=== PATIENT | female | born 1945 | race Caucasian/White ===

== ENCOUNTER 2019-07-19 16:18 | Outpatient (CLI) | payer MEDICARE, OTHER ==
--- NOTE | 2019-07-20 13:20 | XRAY Report ---
Reason: BACK PAIN Procedure Date: 07/19/2019 Accession Number: [id number] / [id number] Procedure: XRN - Lumbar Spine Complete CPT Code: Final Report FULL RESULT: EXAM: LUMBOSACRAL SPINE RADIOGRAPHY EXAM DATE: 07/19/2019 04:41 PM. CLINICAL HISTORY: BACK PAIN. Patient stood up and felt the lower back snap 3 days ago. COMPARISONS: None. TECHNIQUE: 5 views. FINDINGS: Alignment: 7 mm grade 1 anterolisthesis L4 on L5. Bones: Five sss-lfy-bjkmcyx lumbar vertebral bodies are present. No fractures or bone lesions. Disks: Mild disk height loss at L2-L3, L3-L4, L4-L5 with minimal anterior endplate osteophyte formation. Facets: Mild bilateral facet narrowing at L4-L5 and L5-S1. Sacroiliac Joints: Unremarkable. Soft Tissues: Normal. The visualized bowel gas pattern is normal. IMPRESSION: 1. Grade 1 spondylotic anterolisthesis of L4 on L5. 2. Mild degenerative disk disease L2-L3, L3-L4, L4-L5. 3. Mild bilateral facet osteoarthritis L4-L5 and L5-S1. RADIA
== END 2019-07-19 16:19 | disposition home or self-care (01) ==
LOC: DI.N 16:18
PROVIDERS: ATTEND Family Medicine
DX: M51.36 Other intervertebral disc degeneration, lumbar region (principal); M47.816 Spondylosis without myelopathy or radiculopathy, lumbar region; M47.817 Spondylosis without myelopathy or radiculopathy, lumbosacral region; M43.16 Spondylolisthesis, lumbar region
CPT/HCPCS: 72110

== ENCOUNTER 2019-08-03 17:49 | Outpatient (CLI) | payer OTHER ==
--- NOTE | 2019-08-03 19:27 | XRAY Report ---
Reason: ABDONINAL DISCOMFORT Procedure Date: 08/03/2019 Accession Number: [id number] / [id number] Procedure: XR - Abdomen Acute CPT Code: Final Report FULL RESULT: EXAM: ABDOMINAL SERIES AND PA CHEST EXAM DATE: 08/03/2019 05:59 PM. CLINICAL HISTORY: ABDOMINAL DISCOMFORT. COMPARISON: None. TECHNIQUE: 4 views abdomen and 1 view chest. FINDINGS: CHEST: Lungs/Pleura: No focal opacities. No effusion or pneumothorax. Mediastinum: Within exam limitations, cardiomediastinal contour is normal. ABDOMEN: Bowel Gas Pattern: Large gas-filled loop of bowel in the left upper quadrant on the supine view with somewhat of a coffee hebert sign appearance concerning for sigmoid volvulus. No evidence of small bowel obstruction. Free Air: None. Other: None. IMPRESSION: 1. Large gas-filled loop of bowel in the left upper quadrant on the supine view with somewhat of a coffee hebert sign appearance concerning for sigmoid volvulus. Recommend further evaluation with CT scan of the abdomen and pelvis. 2. No evidence of small bowel obstruction. 3. No acute cardiopulmonary process identified radiographically. RADIA
== END 2019-08-03 17:50 | disposition home or self-care (01) ==
LOC: DI 17:49
PROVIDERS: ATTEND Family Medicine
DX: R10.9 Unspecified abdominal pain (principal)
CPT/HCPCS: 74022

== ENCOUNTER 2019-08-05 11:53 | Outpatient (CLI) | payer OTHER ==
[2019-08-05] MEDS ORDERED: IOVERSOL 320 50 ML VIAL ONE (11:54)
[2019-08-05] MEDS ORDERED: IOVERSOL 320 100 ML VIAL IVP ONE ×2 (11:54→13:25)
[2019-08-05 12:42] LABS: CALCIUM 9.6 mg/dL (8.5-10.3); CREATININE 0.8 mg/dL (0.4-1.0)
[2019-08-05] MEDS ORDERED: IOVERSOL 320 50 ML VIAL PO ONE (13:25)
--- NOTE | 2019-08-07 14:38 | CT Report ---
Reason: SIGMOID VOLVULUS Procedure Date: 08/05/2019 Accession Number: [id number] / [id number] Procedure: CT - Abdomen/Pelvis W CPT Code: Final Report FULL RESULT: EXAM: CT ABDOMEN AND PELVIS EXAM DATE: 08/05/2019 01:16 PM. CLINICAL HISTORY: History of sigmoid volvulus with surgical repair approximately 1 year ago. Some bladder leakage and swelling in the right and left pelvic regions. COMPARISONS: None. TECHNIQUE: Routine helical CT imaging was performed through the abdomen and pelvis. IV contrast: Optiray 320 90 mL. Enteric contrast: Yes. Reconstructions: Coronal and sagittal. In accordance with CT protocol optimization, one or more of the following dose reduction techniques were utilized for this exam: automated exposure control, adjustment of mA and/or KV based on patient size, or use of iterative reconstructive technique. FINDINGS: Lung Bases: There is a 6 mm nodule at the peripheral left lung base, see image 2 series 3, not completely characterized. Liver: Subcentimeter hepatic hypodensities are too small to characterize. Gallbladder/Bile Ducts: Unremarkable. Spleen: Normal. Pancreas: Normal. Adrenal Glands: Normal. Kidneys: Normal. No masses or hydronephrosis. Peritoneal Cavity/Bowel: There is no small bowel obstruction. Small bowel loops are seen laterally to the sigmoid colon. The rectosigmoid contains some bowel content, however most of the sigmoid colon is collapsed and medial to a significant amount of small bowel loops, no closed loop configuration is detected. There are no air-fluid levels/focal transition points. No free fluid or free air. No lymphadenopathy by size criteria. Pelvic Organs: No hernia is detected. The patient is status post hysterectomy. Vasculature: There is atherosclerotic disease without abdominal aortic aneurysm. Bones: Grade 1 anterolisthesis of L4 on L5. No aggressive osseous lesions. Other: None. IMPRESSION: Small bowel laterally to the collapsed sigmoid colon, consistent with previous surgical intervention for sigmoid volvulus. No pelvic hernia. RADIA
== END 2019-08-05 11:54 | disposition home or self-care (01) ==
LOC: DI 11:53
PROVIDERS: ATTEND Family Medicine
DX: K56.2 Volvulus (principal); R10.9 Unspecified abdominal pain
CPT/HCPCS: 36415; 74177; 80048; Q9967

== ENCOUNTER 2020-08-14 10:31 | Outpatient (CLI) | payer MEDICARE ==
--- NOTE | 2020-08-14 15:49 | DEXA Report ---
PROCEDURE: Dexa Spine and/or Hip INDICATIONS: SCREENING FOR OSTEOPOROSIS TECHNIQUE: Dual energy x-ray absorptiometry (DXA) was performed on a [employer] System. Regions measur ed are the AP Spine, femoral neck, and if needed forearm. COMPARISON: None. FINDINGS: Lumbar Spine: Bone Mineral Density 1.173 g/cm/cm,T score -0.1, normal bone density Left Hip: Bone Mineral Density 0.907 g/cm/cm,T score -0.8, normal bone density Left Femoral Neck: Bone Mineral Density 0.901 g/cm/cm, T score -1.0, borderline osteopenia (T score greater or equal to -1.0: NORMAL) (T score from -1.1 to -2.4: OSTEOPENIA) (T score less than or equal to -2.5 to: OSTEOPOROSIS) Impression: Borderline osteopenia within the left femoral neck. Patients with diagnosis of osteoporosis or osteopenia should have regular bone mineral density assess ment. For those eligible for Medicare, routine testing is allowed once every 2 years. Testing frequ ency can be increased for patients who have rapidly progressing disease or for those who are receivin g medical therapy to restore bone mass. Reviewed by: Blanca Craft MD on 08/14/2020 3:48 PM PST Approved by: Blanca Craft MD on 08/14/2020 3:48 PM PST Station ID: [id number]
== END 2020-08-14 10:32 | disposition home or self-care (01) ==
LOC: DI 10:31
PROVIDERS: ATTEND Internal Medicine
DX: Z13.820 Encounter for screening for osteoporosis (principal); M85.88 Other specified disorders of bone density and structure, other site

== ENCOUNTER 2020-08-21 11:05 | Outpatient (CLI) | payer MEDICARE, OTHER ==
--- NOTE | 2020-08-22 11:45 | Mammography Report ---
BILATERAL DIGITAL SCREENING MAMMOGRAM 3D/2D: 08/21/2020 CLINICAL: Routine screening. Personal history of right breast cancer. Comparison is made to exams dated: 11/21/2018 mammogram, 02/27/2015 mammogram, and 02/18/2015 mammogram - Diagnostic There are benign post operative findings in the right breast. There also are biopsy clips in the lef t breast. No significant masses, calcifications, or other findings are seen in either breast. There has been no significant interval change. IMPRESSION: BENIGN There is no mammographic evidence of malignancy. A 1 year screening mammogram is recommended. This exam was interpreted at Station ID: [id number]. NOTE: For mammograms, a report in lay terms will be sent to the patient. Approximately 15% of breast malignancies will not be visualized mammographically. In the management of a palpable breast mass, a negative mammogram must not discourage biopsy of a clinically suspicious lesion. Electronically Signed By: Yanci pradhan/marissa:08/21/2020 18:21:43 ACR BI-RADS Category 2: Benign Finding(s) 3342F PARENCHYMAL PATTERN: (D) - The breast(s) demonstrate(s) heterogeneously dense fibroglandular parenchy ma. BI-RADS CATEGORY: (2) - 2 RECOMMENDATION: (ANNUAL) - Recommend routine annual screening mammography. [id number] 1 year screening LATERALITY: (B)
== END 2020-08-21 11:06 | disposition home or self-care (01) ==
LOC: DI.N 11:05
PROVIDERS: ATTEND Internal Medicine
DX: Z12.39 Encounter for other screening for malignant neoplasm of breast (principal); Z08 Encounter for follow-up examination after completed treatment for malignant neoplasm; Z85.3 Personal history of malignant neoplasm of breast
CPT/HCPCS: 77067

== ENCOUNTER 2020-12-09 18:53 | Outpatient (CLI) | payer MEDICARE, OTHER | END 2020-12-09 18:54 | disposition critical access hospital (66) | LOC: EMS 18:53 | DX: R07.89 Other chest pain (principal) | CPT/HCPCS: A0425; A0429 ==

== ENCOUNTER 2020-12-09 19:13 | Emergency (ER) | payer MEDICARE, OTHER ==
[2020-12-09 19:27] LABS: BASOPHILS % (AUTO) 0.9 %; EOSINOPHILS # (AUTO) 0.1 10^3/uL (0.0-0.7); EOSINOPHILS % (AUTO) 1.8 %; HCT - HEMATOCRIT 37.5 % (37.0-47.0); HGB - HEMOGLOBIN 12.7 g/dL (12.0-16.0); LYMPHOCYTES # (AUTO) 1.7 10^3/uL (1.5-3.5); LYMPHOCYTES % (AUTO) 37.1 %; MEAN CORPUSCULAR HEMOGLOBIN 32.3 pg (27.0-31.0); MEAN CORPUSCULAR HGB CONC 33.9 g/dL (32.0-36.0); MEAN CORPUSCULAR VOLUME 95.4 fL (81.0-99.0); MEAN PLATELET VOLUME 8.9 fL (7.9-10.8); MONOCYTES # (AUTO) 0.4 10^3/uL (0.0-1.0); MONOCYTES % (AUTO) 9.8 %; NEUTROPHILS # (AUTO) 2.2 10^3/uL (1.5-6.6); NEUTROPHILS % (AUTO) 50.2 %; PLT - PLATELET COUNT 234 10^3/uL (130-450); RED BLOOD COUNT 3.93 10^6/uL (4.20-5.40); RED CELL DISTRIBUTION WIDTH 13.2 % (12.0-15.0); WHITE BLOOD COUNT 4.5 x10^3/uL (4.8-10.8)
--- OUTSIDE RECORDS SUMMARY | 2020-12-09 19:39 | EXTERNAL MEDICAL SUMMARY RPT | Continuity of Care Document ---
:1945 Demographics Phone Unavailable Preferred Language Unknown Marital Status Unknown Denominational Affiliation Unknown Race Unknown Ethnic Group Unknown Author Organization [facility] Address [address] [id number] Phone Social History date description facility [id number]
[2020-12-09 19:42] LABS: ALBUMIN 4.3 g/dL (3.2-5.5); ALBUMIN/GLOBULIN RATIO 1.5 (1.0-2.2); BILIRUBIN,TOTAL 0.9 mg/dL (0.2-1.0); CREATININE 0.8 mg/dL (0.4-1.0); POTASSIUM 3.3 mmol/L (3.5-5.0); TOTAL PROTEIN 7.2 g/dL (6.7-8.2)
--- NOTE | 2020-12-09 19:46 | XRAY Report ---
PROCEDURE: Chest 1 View X-Ray INDICATIONS: Chest Pain TECHNIQUE: One view of the chest was acquired. COMPARISON: None currently available for review. FINDINGS: Surgical changes and devices: Surgical clips overlie the right breast. Within the lung parenchyma no surgical clips are suspected.. Lungs and pleura: No pleural effusions or pneumothorax. Lungs are clear. Mediastinum: Mediastinal contours appear normal. Heart size is normal. Bones and chest wall: No suspicious bony lesions. Overlying soft tissues appear unremarkable. IMPRESSION: Prior right breast surgical procedure. No sign of pneumonia or pulmonary mass, no evidence of osseous metastatic disease. Source of current chest pain is not seen. Reviewed by: North Yarbrough MD on 12/09/2020 7:45 PM PDT Approved by: North Yarbrough MD on 12/09/2020 7:45 PM PDT Station ID: [id number]
--- NOTE | 2020-12-09 20:07 | ED Physician Documentation ---
PD HPI CHEST PAIN - Stated complaint Stated Complaint: CP - Chief complaint Chief Complaint: Cardiac - History obtained from History obtained from: Patient - Additional information Additional information: This is a ciro 75-year-old woman with no history of coronary disease or risk factors for same other than age. She was a remote sporadic smoker, but quit 40 years ago. Initially says for the last 3 days she has had chest pain but relates is actually probably been longer, more like a week but worse over the last 3 days, waxing and waning but never completely gone. It is a sharp line pain across the left breast and to the sternum. Its not associated with fatigue, shortness of breath, nausea, sweats. There is no exertional component to it. Review of Systems Constitutional: denies: Fever, Chills Nose: denies: Rhinorrhea / runny nose, Congestion Throat: denies: Sore throat Cardiac: reports: Chest pain / pressure. 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 boewl obx - Past Surgical History Past Surgical History: Yes General: Bowel surgery Ortho: Other /WILL CALL ORDER CLERK: section, Hysterectomy - Present Medications Home Medications: Ambulatory Orders Medication Instructions Recorded Confirmed No Known Home Medications 12/09/20 12/09/20 - Allergies Allergies/Adverse Reactions: Allergies Allergy/AdvReac Type Severity Reaction Status Date / Time cortisone Allergy Severe Anaphylaxis Verified 12/09/20 19:19 - Social History Does the pt smoke?: No Smoking Status: Never smoker Does the pt drink ETOH?: Yes ETOH Use: Wine Does the pt have substance abuse?: No - Immunizations Immunizations are current?: Yes - POLST Patient has POLST: No PD ED PE NORMAL - Vitals Vital signs reviewed: Yes - General General: Alert and oriented X 3, No acute distress - HEENT HEENT: PERRL, EOMI - Neck Neck: Supple, no meningeal sign, No bony TTP - Cardiac Cardiac: RRR, No murmur - Respiratory Respiratory: No respiratory distress, Clear bilaterally - Abdomen Abdomen: Non tender - Back Back: No CVA TTP, No spinal TTP - Derm Derm: Normal color, Warm and dry - Extremities Extremities: No edema, No calf tenderness / cord - Neuro Neuro: Alert and oriented X 3, Normal speech Results - Vitals Vitals: Vital Signs - 24 hr 12/09/20 19:19 Temperature 37.2 C Heart Rate 95 Respiratory 17 Rate Blood Pressure 149/94 H O2 Saturation 97 Oxygen O2 Source Room air - EKG (time done) 1916 Rate: Rate (enter#) (85) Rhythm: NSR [place]: LAD Intervals: Normal AL QRS: Normal Ischemia: Normal ST segments - Labs Labs: Laboratory Tests 12/09/20 12/09/20 12/09/20 19:21 19:21 19:21 WBC 4.5 L RBC 3.93 L Hgb 12.7 Hct 37.5 MCV 95.4 MCH 32.3 H MCHC 33.9 RDW 13.2 Plt Count 234 MPV 8.9 Neut # (Auto) 2.2 Lymph # (Auto) 1.7 [place] # (Auto) 0.4 Eos # (Auto) 0.1 Baso # (Auto) 0.0 Absolute Nucleated RBC 0.00 Nucleated RBC % 0.0 Sodium 138 Potassium 3.3 L Chloride 102 Carbon Dioxide 27 Anion Gap 9.0 BUN 19 Creatinine 0.8 Estimated GFR (MDRD) 70 L Glucose 100 Calcium 10.0 Total Bilirubin 0.9 AST 16 ALT 17 Alkaline Phosphatase 69 Troponin I High Sens 4.3 Total Protein 7.2 Albumin 4.3 Globulin 2.9 Albumin/Globulin Ratio 1.5 Lipase 32 PD MEDICAL DECISION MAKING - ED course ED course: This is a 75-year-old woman with atypical chest pain of 3 days duration. Given the timing a single troponin should be predictive, that said because of her age and blood pressure I recommended admission to observation for serial troponins and stress testing which she declined after discussion of the risks. She prefers an outpatient follow-up and stress. Departure - Departure Disposition: 01 Home, Self Care Clinical Impression: Chest pain Qualifiers: Chest pain type: unspecified Qualified Code(s): R07.9 - Chest pain, unspecified Condition: Good Record reviewed to determine appropriate education?: Yes Instructions: ED Chest Pain Atypical Unkn Cause Comments: Return if worsening or if the pain changes. Follow-up with your doctor, call tomorrow. Consider follow-up stress testing. Until notified otherwise you should take a baby aspirin a day.
[2020-12-09 20:17] VITALS: BP 161/90
== END 2020-12-09 20:15 | disposition home or self-care (01) ==
LOC: EDUNIT# → ED 19:13
DX: R07.9 Chest pain, unspecified (principal); Z87.891 Personal history of nicotine dependence
CPT/HCPCS: 36415; 80053; 83690; 84484; 85025; 93005; 99283; 99284

== ENCOUNTER 2021-05-02 08:00 | Outpatient (CLI) | payer MEDICARE, OTHER | END 2021-05-02 23:59 | disposition home or self-care (01) | LOC: LAB.WCP 08:00 | PROVIDERS: ATTEND Internal Medicine | DX: Z01.84 Encounter for antibody response examination (principal); J06.9 Acute upper respiratory infection, unspecified | CPT/HCPCS: 86769 ==

== ENCOUNTER 2021-07-16 16:04 | Outpatient (CLI) | payer MEDICARE, OTHER ==
--- NOTE | 2021-07-16 17:08 | XRAY Report ---
PROCEDURE: Knee 4 View BILAT INDICATIONS: OSTEOARTHRITIS, BILATERAL KNEES TECHNIQUE: 3 views of the left and right knee(s) were acquired. COMPARISON: None. FINDINGS: No acute fracture. On the right, scattered degenerative spurring and sclerosis.Severe narrowing of the medial joint spac es. Chondrocalcinosis noted. No joint effusion. There is also severe narrowing of the patellar femora l joint space. On the left, scattered degenerative spurring and sclerosis. Severe patellofemoral joint space narrowi ng. No joint effusion. Chondrocalcinosis is present in the lateral compartment. IMPRESSION: Severe bilateral knee joint degeneration as above. Chondrocalcinosis. Reviewed by: Florian Falcon MD on 07/16/2021 5:06 PM PST Approved by: Florian Falcon MD on 07/16/2021 5:06 PM PST Station ID: [id number]
== END 2021-07-16 16:05 | disposition home or self-care (01) ==
LOC: DI.N 16:04
PROVIDERS: ATTEND Internal Medicine
DX: M17.0 Bilateral primary osteoarthritis of knee (principal); M11.262 Other chondrocalcinosis, left knee; M11.261 Other chondrocalcinosis, right knee

== ENCOUNTER 2021-07-19 09:47 | Outpatient (CLI) | payer MEDICARE, OTHER ==
[2021-07-19 13:40] LABS: BASOPHILS # (AUTO) 0.1 10^3/uL (0.0-0.1); BASOPHILS % (AUTO) 1.4 %; EOSINOPHILS # (AUTO) 0.1 10^3/uL (0.0-0.7); EOSINOPHILS % (AUTO) 3.4 %; HCT - HEMATOCRIT 37.2 % (37.0-47.0); HGB - HEMOGLOBIN 11.9 g/dL (12.0-16.0); LYMPHOCYTES # (AUTO) 1.3 10^3/uL (1.5-3.5); LYMPHOCYTES % (AUTO) 32.1 %; MEAN CORPUSCULAR HEMOGLOBIN 32.4 pg (27.0-31.0); MEAN CORPUSCULAR VOLUME 101.4 fL (81.0-99.0); MEAN PLATELET VOLUME 10.2 fL (7.9-10.8); MONOCYTES # (AUTO) 0.5 10^3/uL (0.0-1.0); MONOCYTES % (AUTO) 11.1 %; NEUTROPHILS # (AUTO) 2.1 10^3/uL (1.5-6.6); NEUTROPHILS % (AUTO) 51.8 %; PLT - PLATELET COUNT 267 10^3/uL (130-450); RED BLOOD COUNT 3.67 10^6/uL (4.20-5.40); RED CELL DISTRIBUTION WIDTH 13.2 % (12.0-15.0); WHITE BLOOD COUNT 4.1 x10^3/uL (4.8-10.8)
[2021-07-19 14:22] LABS: ALBUMIN 4.6 g/dL (3.2-5.5); ALBUMIN/GLOBULIN RATIO 1.4 (1.0-2.2); ALKALINE PHOSPHATASE 64 IU/L (42-121); ALT ALANINE AMINOTRANSFERASE 21 IU/L (10-60); AST ASPARTATE AMINOTRANSFERASE 20 IU/L (10-42); BILIRUBIN,TOTAL 1.4 mg/dL (0.2-1.0); BUN - BLOOD UREA NITROGEN 17 mg/dL (6-20); CALCIUM 10.4 mg/dL (8.5-10.3); CARBON DIOXIDE - CO2 30 mmol/L (21-32); CHLORIDE 101 mmol/L (101-111); CHOL/HDL RATIO 2.6 (<4.4); CHOLESTEROL 268 mg/dL; CREATININE 1.1 mg/dL (0.4-1.0); GFR - MDRD 48 (>89); GLUCOSE 93 mg/dL (70-100); HDL CHOLESTEROL 104 mg/dL; LDL CHOLESTEROL,CALCULATED 133 mg/dL; LDL/HDL RATIO 1.3 (<4.4); POTASSIUM 3.6 mmol/L (3.5-5.0); SODIUM 142 mmol/L (135-145); TOTAL PROTEIN 7.8 g/dL (6.7-8.2); TRIGLYCERIDES 157 mg/dL; VLDL CHOLESTEROL 31 mg/dL
[2021-07-19 14:32] LABS: THYROID STIMULATING HORMONE 5.95 uIU/mL (0.34-5.60)
[2021-07-19 15:10] LABS: FREE T4 (FREE THYROXINE) 0.77 ng/dL (0.58-1.64)
== END 2021-07-19 09:48 | disposition home or self-care (01) ==
LOC: LAB.N 09:47
PROVIDERS: ATTEND Internal Medicine
DX: I10 Essential (primary) hypertension (principal); G62.9 Polyneuropathy, unspecified; D47.2 Monoclonal gammopathy
CPT/HCPCS: 36415; 80053; 80061; 81599; 83721; 84155; 84165; 84439; 84443; 85025; 86334

== ENCOUNTER 2021-08-04 08:00 | Outpatient (CLI) | payer MEDICARE, OTHER ==
[2021-08-04 19:50] LABS: FECAL OCCULT BLOOD (FIT) NEGATIVE (NEGATIVE)
[2021-08-04 22:29] LABS: H. PYLORIS ANTIGEN STL NEGATIVE (Negative)
== END 2021-08-04 23:59 ==
LOC: LAB.WCP 08:00
PROVIDERS: ATTEND Internal Medicine
DX: K52.9 Noninfective gastroenteritis and colitis, unspecified (principal)
CPT/HCPCS: 81599; 82274; 83993; 87045; 87329; 87338; 87427; 87449; 87493

== ENCOUNTER 2021-11-06 12:38 | Outpatient (CLI) | payer MEDICARE, OTHER ==
[2021-11-08 15:41] LABS: ABNORMAL PROTEIN BAND 1 0.8 g/dL (NONE DETECTED); ALBUMIN 4.8 g/dL (3.8-4.8); ALPHA 1 GLOBULIN 0.3 g/dL (0.2-0.3); ALPHA 2 GLOBULIN 0.8 g/dL (0.5-0.9); BETA 1 GLOBULIN 0.5 g/dL (0.4-0.6); BETA 2 GLOBULIN 0.3 g/dL (0.2-0.5); GAMMA GLOBULIN 1.3 g/dL (0.8-1.7)
== END 2021-11-06 12:39 | disposition home or self-care (01) ==
LOC: LAB.N 12:38
DX: D47.2 Monoclonal gammopathy (principal)
CPT/HCPCS: 36415; 81599; 82570; 84155; 84156; 84165; 84166

== ENCOUNTER 2021-11-24 13:10 | Outpatient (CLI) | payer MEDICARE, OTHER | END 2021-11-24 13:11 | disposition home or self-care (01) | LOC: LAB.N 13:10 | PROVIDERS: ATTEND Internal Medicine | DX: E83.52 Hypercalcemia (principal); D47.2 Monoclonal gammopathy | CPT/HCPCS: 36415; 81599; 83970; 84155; 84165; 86334 ==

== ENCOUNTER 2021-11-27 14:58 | Outpatient (CLI) | payer MEDICARE, OTHER | END 2021-11-27 14:59 | disposition home or self-care (01) | LOC: LAB.N 14:58 | DX: D47.2 Monoclonal gammopathy (principal) | CPT/HCPCS: 81599; 86334 ==

== ENCOUNTER 2022-08-17 11:23 | Outpatient (CLI) | payer MEDICARE, OTHER ==
[2022-08-17 17:45] LABS: BASOPHILS # (AUTO) 0.1 10^3/uL (0.0-0.1); BASOPHILS % (AUTO) 1.1 %; EOSINOPHILS # (AUTO) 0.1 10^3/uL (0.0-0.7); EOSINOPHILS % (AUTO) 1.1 %; HCT - HEMATOCRIT 39.4 % (37.0-47.0); HGB - HEMOGLOBIN 12.3 g/dL (12.0-16.0); LYMPHOCYTES # (AUTO) 1.4 10^3/uL (1.5-3.5); LYMPHOCYTES % (AUTO) 31.2 %; MEAN CORPUSCULAR HGB CONC 31.2 g/dL (32.0-36.0); MEAN CORPUSCULAR VOLUME 92.9 fL (81.0-99.0); MEAN PLATELET VOLUME 10.2 fL (7.9-10.8); MONOCYTES # (AUTO) 0.4 10^3/uL (0.0-1.0); MONOCYTES % (AUTO) 8.6 %; NEUTROPHILS # (AUTO) 2.6 10^3/uL (1.5-6.6); NEUTROPHILS % (AUTO) 57.8 %; PLT - PLATELET COUNT 274 10^3/uL (130-450); RED BLOOD COUNT 4.24 10^6/uL (4.20-5.40); RED CELL DISTRIBUTION WIDTH 17.5 % (12.0-15.0); WHITE BLOOD COUNT 4.5 x10^3/uL (4.8-10.8)
[2022-08-17 18:09] LABS: ALBUMIN 4.2 g/dL (3.2-5.5); ALBUMIN/GLOBULIN RATIO 1.2 (1.0-2.2); ALKALINE PHOSPHATASE 75 IU/L (42-121); ALT ALANINE AMINOTRANSFERASE 18 IU/L (10-60); AST ASPARTATE AMINOTRANSFERASE 20 IU/L (10-42); BILIRUBIN,TOTAL 0.8 mg/dL (0.2-1.0); BUN - BLOOD UREA NITROGEN 16 mg/dL (6-20); CALCIUM 9.2 mg/dL (8.5-10.3); CARBON DIOXIDE - CO2 27 mmol/L (21-32); CHLORIDE 99 mmol/L (101-111); CHOL/HDL RATIO 2.1 (<4.4); CHOLESTEROL 266 mg/dL; CREATININE 0.8 mg/dL (0.4-1.0); GFR - MDRD 70 (>89); GLUCOSE 95 mg/dL (70-100); HDL CHOLESTEROL 129 mg/dL; LDL CHOLESTEROL,CALCULATED 125 mg/dL; SODIUM 135 mmol/L (135-145); TOTAL PROTEIN 7.7 g/dL (6.7-8.2); TRIGLYCERIDES 61 mg/dL; VLDL CHOLESTEROL 12 mg/dL
[2022-08-17 18:19] LABS: THYROID STIMULATING HORMONE 0.86 uIU/mL (0.34-5.60)
[2022-08-19 16:08] LABS: A/G RATIO 1.1 (0.7-1.7); ALBUMIN 3.7 g/dL (2.9-4.4); ALPHA-1-GLOBULIN 0.3 g/dL (0.0-0.4); ALPHA-2-GLOBULIN 0.8 g/dL (0.4-1.0); GAMMA GLOBULIN 1.4 g/dL (0.4-1.8); GLOBULIN TOTAL 3.4 g/dL (2.2-3.9); IMMUNOGLOBULIN A 116 mg/dL (64-422); IMMUNOGLOBULIN G 1377 mg/dL (586-1602); IMMUNOGLOBULIN M 80 mg/dL (26-217); M-SPIKE 0.7 g/dL (Not Observed); PROTEIN TOTAL 7.1 g/dL (6.0-8.5)
== END 2022-08-17 11:24 | disposition home or self-care (01) ==
LOC: LAB.N 11:23
PROVIDERS: ATTEND Internal Medicine
DX: D47.2 Monoclonal gammopathy (principal); K22.70 Barrett's esophagus without dysplasia; Z13.220 Encounter for screening for lipoid disorders; Z85.3 Personal history of malignant neoplasm of breast; K58.0 Irritable bowel syndrome with diarrhea; E03.9 Hypothyroidism, unspecified
CPT/HCPCS: 36415; 80053; 80061; 81599; 82784; 83721; 84155; 84165; 84443; 85025; 86334; 86677

== ENCOUNTER 2022-08-24 08:00 | Outpatient (CLI) | payer MEDICARE, OTHER ==
[2022-08-24 18:03] LABS: H. PYLORIS ANTIGEN STL NEGATIVE (Negative)
== END 2022-08-24 23:59 | disposition home or self-care (01) ==
LOC: LAB.N 08:00
PROVIDERS: ATTEND Internal Medicine
DX: K58.0 Irritable bowel syndrome with diarrhea (principal)
CPT/HCPCS: 83993; 87338

== ENCOUNTER 2022-12-04 19:16 | Outpatient (CLI) | payer MEDICARE, OTHER ==
--- NOTE | 2022-12-05 00:20 | XRAY Report ---
PROCEDURE: Knee 3 View BILAT INDICATIONS: BILATERAL PRIMARY OSTEOARTHRITIS OF KNEE TECHNIQUE: 3 views of each knee were acquired. COMPARISON: 07/16/2021 FINDINGS: Bones: No fractures or dislocations. No suspicious bony lesions. There is moderate medial femorotibial joint space narrowing on the right, with associated degenerativ e change with subchondral sclerosis and osteophyte formation. On the sunrise view, there is moderate to severe lateral bilateral patellofemoral joint space narrowi ng, with associated remodeling changes, including spurs along the margins of the patella. Calcificati on can be seen along the superior aspect of each patella on the lateral views Soft tissues: No significant joint effusion is seen on either side.. No suspicious soft tissue calci fications or masses. IMPRESSION: Extensive osteoarthritic degenerative changes are seen, which are similar to 2020. If it would be helpful for clinical management decision making, please consider a dedicated, schedule d knee MRI for further evaluation (assuming that there is no contraindication). Reviewed by: Luis E Do MD on 12/04/2022 11:18 PM TIFFANIE Approved by: Luis E Do MD on 12/04/2022 11:18 PM TIFFANIE Station ID: [id number]
== END 2022-12-04 19:17 | disposition home or self-care (01) ==
LOC: DI 19:16
PROVIDERS: ATTEND Internal Medicine
DX: M17.0 Bilateral primary osteoarthritis of knee (principal)

== ENCOUNTER 2023-01-05 14:04 | Outpatient (CLI) | payer MEDICARE, OTHER | END 2023-01-05 14:05 | disposition home or self-care (01) | LOC: DI.N 14:04 | PROVIDERS: ATTEND Internal Medicine | DX: Z53.9 Procedure and treatment not carried out, unspecified reason (principal) ==

== ENCOUNTER 2023-01-05 14:28 | Outpatient (CLI) | payer MEDICARE, OTHER ==
--- NOTE | 2023-01-05 15:46 | XRAY Report ---
PROCEDURE: Knee 3 View BILAT INDICATIONS: BILATERAL PRIMARY OSTEOARTHRITIS. TECHNIQUE: 3 views of the bilateral knee(s) were acquired. COMPARISON: None. FINDINGS: Bones: No fractures or dislocations. No suspicious bony lesions. Definite osteophytes and possibl e narrowing of joint space. This is tricompartmental. Calcification within the quadriceps tendons. Bi lateral trochlear dysplasia, with mild lateral subluxation of the patellas. Soft tissues: Mild knee joint effusions. No suspicious soft tissue calcifications or masses. IMPRESSION: Bilateral trochlear dysplasia, with mild subluxation of the patellas. Tricompartmental Kellgren-Marlon scale of osteoarthritis: Grade 2: mild osteoarthritis. Calcification within the quadriceps tendons, possibly calcific tendinopathy. Reviewed by: Eliezer Biswas on 01/05/2023 3:44 PM PDT Approved by: Eliezer Biswas on 01/05/2023 3:44 PM PDT Station ID: [id number]
== END 2023-01-05 23:59 | disposition home or self-care (01) ==
LOC: DI.N 14:28
PROVIDERS: ATTEND Internal Medicine
DX: M17.0 Bilateral primary osteoarthritis of knee (principal); S83.012A Lateral subluxation of left patella, initial encounter; S83.011A Lateral subluxation of right patella, initial encounter

== ENCOUNTER 2023-01-19 13:49 | Outpatient (CLI) | payer MEDICARE, OTHER ==
--- NOTE | 2023-01-20 11:15 | Ultrasound Report ---
PROCEDURE: Ext Limited Non Vascular INDICATIONS: LLE SOFT TISSUE MASS TECHNIQUE: Real-time scanning was performed of the left leg, with image documentation. COMPARISON: None. FINDINGS AND IMPRESSION: At the area of clinical concern, there is a 4.9 x 1.1 x 2.7 cm complex fluid collection in the left m edial calf. Sterility is indeterminate on imaging. There is mild surrounding edema. This is amenable to ultrasound-guided sampling and aspiration if necessary. Reviewed by: Casey Rajput MD on 01/20/2023 11:05 AM PDT Approved by: Casey Rajput MD on 01/20/2023 11:05 AM PDT Station ID: [id number]
== END 2023-01-19 13:50 | disposition home or self-care (01) ==
LOC: DI 13:49
PROVIDERS: ATTEND Physician Assistant
DX: R22.42 Localized swelling, mass and lump, left lower limb (principal)

== ENCOUNTER 2023-01-26 10:24 | Outpatient (CLI) | payer MEDICARE, OTHER ==
--- NOTE | 2023-01-27 08:55 | XRAY Report ---
PROCEDURE: Cervical Spine Complete INDICATIONS: CHRONIC NECK PX TECHNIQUE: 5 views of the cervical spine acquired. COMPARISON: None. FINDINGS: Bones: No fractures or dislocations to the vertebra level. There is grade 1 anterolisthesis of C3 on C4 and C5 on C6, and grade 1 retrolisthesis of C4 on C5. Degenerative disc disease, moderate at C3 -C4, C4-C5, C5-C6 and C6-C7. Bilateral facet arthropathy, most pronounced at C3-C4 on the right and C 5-C6 bilaterally. Oblique images demonstrate moderate bony foraminal stenosis at C4-C5 bilaterally. Soft tissues: No prevertebral soft tissue swelling. IMPRESSION: 1. Multilevel degenerative disc and facet disease in cervical spine. 2. Bilateral foraminal stenosis at C4-C5. Reviewed by: Shan Reyna MD on 01/27/2023 8:53 AM PDT Approved by: Shan Reyna MD on 01/27/2023 8:53 AM PDT Station ID: [id number]
== END 2023-01-26 10:25 | disposition home or self-care (01) ==
LOC: DI 10:24
PROVIDERS: ATTEND Physician Assistant
DX: M47.812 Spondylosis without myelopathy or radiculopathy, cervical region (principal); M50.31 Other cervical disc degeneration, high cervical region; M48.02 Spinal stenosis, cervical region

== ENCOUNTER 2023-02-09 12:45 | Outpatient (CLI) | payer MEDICARE, OTHER ==
--- NOTE | 2023-02-09 16:53 | XRAY Report ---
PROCEDURE: Knee 3 View LT INDICATIONS: KNEE JOINT PAIN LEFT TECHNIQUE: 3 views of the left knee(s) were acquired. COMPARISON: None. FINDINGS: Bones: No fractures or dislocations. No suspicious bony lesions. Moderate tricompartmental periar eolar osteophyte formation. Soft tissues: No knee joint effusion. No suspicious soft tissue calcifications or masses. Calcifica tion within the quadriceps tendon. IMPRESSION: 1. Osteoarthritis. 2. Quadriceps tendinopathy. 3. No acute fracture. No osseous lesion. If symptoms and/or clinical suspicion for pathology continue , further assessment with repeat plain films, or advanced imaging (e.g., CT, MRI, or bone scan) is re commended for further assessment. Reviewed by: Beck Arora MD on 02/09/2023 4:52 PM PDT Approved by: Beck Arora MD on 02/09/2023 4:52 PM PDT Station ID: [id number]
== END 2023-02-09 13:00 | disposition home or self-care (01) ==
LOC: DI.N 12:45
PROVIDERS: ATTEND Physician Assistant
DX: M17.12 Unilateral primary osteoarthritis, left knee (principal); M67.864 Other specified disorders of tendon, left knee

== ENCOUNTER 2023-05-31 13:00 | Outpatient (CLI) | payer MEDICARE, OTHER ==
[2023-05-31 23:01] LABS: BACTERIAL VAGINOSIS DNA NEGATIVE (NEGATIVE); CANDIDA GLABRATA DNA NEGATIVE (NEGATIVE); CANDIDA GROUP DNA NEGATIVE (NEGATIVE); CANDIDA KRUSEI DNA NEGATIVE (NEGATIVE); TRICHOMONAS VAGINALIS DNA NEGATIVE (NEGATIVE)
== END 2023-05-31 13:45 | disposition home or self-care (01) ==
LOC: LAB.N 13:00
PROVIDERS: ATTEND Nurse Practitioner
DX: N39.0 Urinary tract infection, site not specified (principal); N89.8 Other specified noninflammatory disorders of vagina
CPT/HCPCS: 81514; 87086

== ENCOUNTER 2023-06-24 10:38 | Outpatient (CLI) | payer MEDICARE, OTHER ==
[2023-06-24 18:00] LABS: BASOPHILS # (AUTO) 0.1 10^3/uL (0.0-0.1); BASOPHILS % (AUTO) 1.5 %; EOSINOPHILS # (AUTO) 0.1 10^3/uL (0.0-0.7); EOSINOPHILS % (AUTO) 1.9 %; HGB - HEMOGLOBIN 10.5 g/dL (12.0-16.0); LYMPHOCYTES # (AUTO) 1.9 10^3/uL (1.5-3.5); LYMPHOCYTES % (AUTO) 38.4 %; MEAN CORPUSCULAR HEMOGLOBIN 27.6 pg (27.0-31.0); MEAN CORPUSCULAR HGB CONC 30.9 g/dL (32.0-36.0); MEAN CORPUSCULAR VOLUME 89.5 fL (81.0-99.0); MEAN PLATELET VOLUME 9.6 fL (7.9-10.8); MONOCYTES # (AUTO) 0.4 10^3/uL (0.0-1.0); MONOCYTES % (AUTO) 8.3 %; NEUTROPHILS # (AUTO) 2.4 10^3/uL (1.5-6.6); NEUTROPHILS % (AUTO) 49.7 %; PLT - PLATELET COUNT 317 10^3/uL (130-450); RED CELL DISTRIBUTION WIDTH 18.8 % (12.0-15.0); WHITE BLOOD COUNT 4.8 x10^3/uL (4.8-10.8)
[2023-06-24 18:17] LABS: ALBUMIN 4.2 g/dL (3.2-5.5); ALBUMIN/GLOBULIN RATIO 1.3 (1.0-2.2); ALKALINE PHOSPHATASE 62 IU/L (42-121); ALT ALANINE AMINOTRANSFERASE 15 IU/L (10-60); AST ASPARTATE AMINOTRANSFERASE 17 IU/L (10-42); BILIRUBIN,TOTAL 0.5 mg/dL (0.2-1.0); BUN - BLOOD UREA NITROGEN 17 mg/dL (6-20); CALCIUM 9.3 mg/dL (8.5-10.3); CARBON DIOXIDE - CO2 29 mmol/L (21-32); CHLORIDE 104 mmol/L (101-111); CHOL/HDL RATIO 2.1 (<4.4); CHOLESTEROL 215 mg/dL; CREATININE 0.9 mg/dL (0.6-1.3); GFR - MDRD 61 (>89); GLUCOSE 104 mg/dL (74-104); HDL CHOLESTEROL 104 mg/dL; LDL CHOLESTEROL,CALCULATED 97 mg/dL; LDL/HDL RATIO 0.9 (<4.4); POTASSIUM 3.8 mmol/L (3.5-4.5); SODIUM 140 mmol/L (135-145); TOTAL PROTEIN 7.4 g/dL (6.4-8.9); TRIGLYCERIDES 68 mg/dL (48-352); VLDL CHOLESTEROL 14 mg/dL
[2023-06-24 18:31] LABS: THYROID STIMULATING HORMONE 1.27 uIU/mL (0.34-5.60)
== END 2023-06-24 10:39 | disposition home or self-care (01) ==
LOC: LAB.N 10:38
PROVIDERS: ATTEND Internal Medicine
DX: D47.2 Monoclonal gammopathy (principal); E03.9 Hypothyroidism, unspecified; Z13.220 Encounter for screening for lipoid disorders
CPT/HCPCS: 36415; 80053; 80061; 82784; 83721; 84155; 84165; 84443; 85025; 86334

== ENCOUNTER 2023-08-20 16:01 | Outpatient (CLI) | payer MEDICARE, OTHER ==
--- NOTE | 2023-08-20 20:04 | XRAY Report ---
PROCEDURE: Hand 3 View BILAT INDICATIONS: DJD OF BILATERAL FIRST CMC JOINTS TECHNIQUE: 3 views of the each hand(s) acquired. COMPARISON: None. FINDINGS: Bones: No fractures or dislocations. Severe degenerative changes at the first CMC joints. Moderate t o severe degenerative change at the right second digit DIP joint. No suspicious bony lesions. Soft tissues: No suspicious soft tissue calcifications or masses. IMPRESSION: Severe degenerative changes at the bilateral first CMC joints. Moderate to severe degenerative change at the right second digit DIP joint. Reviewed by: Yakov Hawkins MD on 08/20/2023 8:03 PM PST Approved by: Yakov Hawkins MD on 08/20/2023 8:03 PM PST Station ID: [id number]
== END 2023-08-20 16:02 | disposition home or self-care (01) ==
LOC: DI 16:01
PROVIDERS: ATTEND Internal Medicine
DX: M18.0 Bilateral primary osteoarthritis of first carpometacarpal joints (principal); M19.042 Primary osteoarthritis, left hand; M19.041 Primary osteoarthritis, right hand

== ENCOUNTER 2023-11-26 11:44 | Outpatient (CLI) | payer MEDICARE, OTHER ==
[2023-11-26 18:09] LABS: BASOPHILS # (AUTO) 0.1 10^3/uL (0.0-0.1); BASOPHILS % (AUTO) 1.7 %; EOSINOPHILS # (AUTO) 0.1 10^3/uL (0.0-0.7); EOSINOPHILS % (AUTO) 1.7 %; HGB - HEMOGLOBIN 11.8 g/dL (12.0-16.0); LYMPHOCYTES # (AUTO) 1.7 10^3/uL (1.5-3.5); LYMPHOCYTES % (AUTO) 41.3 %; MEAN CORPUSCULAR HEMOGLOBIN 30.3 pg (27.0-31.0); MEAN CORPUSCULAR HGB CONC 31.9 g/dL (32.0-36.0); MEAN CORPUSCULAR VOLUME 95.1 fL (81.0-99.0); MEAN PLATELET VOLUME 9.7 fL (7.9-10.8); MONOCYTES # (AUTO) 0.4 10^3/uL (0.0-1.0); MONOCYTES % (AUTO) 9.2 %; NEUTROPHILS # (AUTO) 1.9 10^3/uL (1.5-6.6); NEUTROPHILS % (AUTO) 46.1 %; PLT - PLATELET COUNT 317 10^3/uL (130-450); RED BLOOD COUNT 3.89 10^6/uL (4.20-5.40); RED CELL DISTRIBUTION WIDTH 15.2 % (12.0-15.0)
[2023-11-26 18:39] LABS: ESTIMATED AVERAGE GLUCOSE 105 mg/dL (70-100); HEMOGLOBIN A1c% 5.3 % (4.27-6.07)
[2023-11-26 18:54] LABS: ALBUMIN/GLOBULIN RATIO 1.3 (1.0-2.2); ALKALINE PHOSPHATASE 58 IU/L (42-121); ALT ALANINE AMINOTRANSFERASE 14 IU/L (10-60); AST ASPARTATE AMINOTRANSFERASE 15 IU/L (10-42); BILIRUBIN,TOTAL 0.6 mg/dL (0.2-1.0); BUN - BLOOD UREA NITROGEN 15 mg/dL (6-20); CALCIUM 9.7 mg/dL (8.5-10.3); CARBON DIOXIDE - CO2 28 mmol/L (21-32); CHLORIDE 105 mmol/L (101-111); CHOL/HDL RATIO 2.2 (<4.4); CHOLESTEROL 217 mg/dL; CREATININE 0.9 mg/dL (0.6-1.3); GFR - MDRD 61 (>89); GLUCOSE 85 mg/dL (74-104); HDL CHOLESTEROL 97 mg/dL; LDL CHOLESTEROL,CALCULATED 101 mg/dL; POTASSIUM 4.1 mmol/L (3.5-4.5); SODIUM 138 mmol/L (135-145); TRIGLYCERIDES 93 mg/dL (48-352); VLDL CHOLESTEROL 19 mg/dL
[2023-11-26 19:01] LABS: CREATININE,URINE 213.6 mg/dL; MICROALBUM/CREATININE RATIO,UR 5.1 ug/mg (<30.0); MICROALBUMIN,URINE 1.1 mg/dL
[2023-11-26 19:05] LABS: THYROID STIMULATING HORMONE 0.39 uIU/mL (0.34-5.60)
== END 2023-11-26 11:45 | disposition home or self-care (01) ==
LOC: LAB.N 11:44
PROVIDERS: ATTEND Internal Medicine
DX: I10 Essential (primary) hypertension (principal); R73.01 Impaired fasting glucose; D47.2 Monoclonal gammopathy; E03.9 Hypothyroidism, unspecified
CPT/HCPCS: 36415; 80053; 80061; 81001; 82043; 82570; 82784; 83036; 83521; 83721; 84155; 84165; 84443; 85025; 86334

== ENCOUNTER 2023-12-10 10:55 | Outpatient (CLI) | payer MEDICARE, OTHER ==
--- NOTE | 2023-12-10 16:42 | MRI Report ---
PROCEDURE: Lumbar Spine WO INDICATIONS: FECAL INCONTINENCE TECHNIQUE: Noncontrast sagittal T1 spin echo and T2 fast echo, sagittal STIR, axial T1 and T2 fast spin echo thr ough the lumbar spine. In cases with scoliosis, additional coronal T2 fast spin echo may be performe d. COMPARISON: X-ray lumbar spine 07/20/2019 FINDINGS: Image quality: Excellent. Alignment and Curvature: There is mild scoliotic curvature with apex at L4. Bone Marrow: Marrow is of normal overall signal. There is trace anterolisthesis of L4 on L5 and trac e retrolisthesis of T12 on L1, L1 on L2. No acute vertebral body compression fractures. Spinal Cord: Conus medullaris terminates at the L1 level. Visualized cord demonstrates normal signa l and size. Paraspinous Soft Tissues: No paravertebral masses. Partially visualized liver is enlarged. Discs: Multilevel moderate disc desiccation. T12-L1: Minimal disc bulge with effacement of the anterior thecal sac. No foraminal narrowing. L1-L2: Minimal disc bulge without spinal stenosis or foraminal narrowing. L2-L3: Mild disc bulge without spinal stenosis. Moderate bilateral foraminal narrowing with facet and ligamentum flavum hypertrophy. L3-L4: Mild disc bulge with effacement of the anterior thecal sac. Mild to moderate bilateral gab inal narrowing with facet and ligamentum flavum hypertrophy. L4-L5: Mild disc bulge with moderate spinal stenosis. Moderate to severe right and moderate left fo raminal narrowing with facet and ligamentum flavum hypertrophy. L5-S1: Mild disc bulge without spinal stenosis. No foraminal narrowing. Facet and ligamentum flavum hypertrophy are present. IMPRESSION: Multilevel disc bulges. Multilevel foraminal narrowing most severe at L4-5 secondary to facet/ligamen serg flavum arthropathy. Reviewed by: Blanca Craft MD on 12/10/2023 4:40 PM PDT Approved by: Blanca Craft MD on 12/10/2023 4:40 PM PDT Station ID: [id number]
== END 2023-12-10 10:56 | disposition home or self-care (01) ==
LOC: DI 10:55
PROVIDERS: ATTEND Internal Medicine
DX: M51.36 Other intervertebral disc degeneration, lumbar region (principal); M48.061 Spinal stenosis, lumbar region without neurogenic claudication; M47.816 Spondylosis without myelopathy or radiculopathy, lumbar region; M47.817 Spondylosis without myelopathy or radiculopathy, lumbosacral region; M51.37 Other intervertebral disc degeneration, lumbosacral region; R15.9 Full incontinence of feces

== ENCOUNTER 2023-12-10 11:02 | Outpatient (CLI) | payer MEDICARE, OTHER ==
--- NOTE | 2023-12-13 09:54 | Mammography Report ---
BILATERAL DIGITAL SCREENING MAMMOGRAM 3D/2D: 12/10/2023 CLINICAL: Routine screening. Personal history of right breast cancer. Comparison is made to exams dated: 08/21/2020 mammogram - [facility], 11/21/2018 ma mmogram, 11/08/2015 mammogram, 02/27/2015 mammogram, and 02/18/2015 mammogram - Diagnostic Both breasts are heterogeneously dense, which may obscure small masses (category c / 51-75% glandular tissue). There are benign post operative findings in the right breast. There also are biopsy clips in the lef t breast. No significant masses, calcifications, or other findings are seen in either breast. There has been no significant interval change. IMPRESSION: BENIGN There is no mammographic evidence of malignancy. A 1 year screening mammogram is recommended. This exam was interpreted at Station ID: [id number]. NOTE: For mammograms, a report in lay terms will be sent to the patient. Approximately 15% of breast malignancies will not be visualized mammographically. In the management of a palpable breast mass, a negative mammogram must not discourage biopsy of a clinically suspicious lesion. Electronically Signed By: Yakov donohue/jarvisrad:12/10/2023 16:52:01 letter sent: No_Letter ACR BI-RADS Category 2: Benign Finding(s) 3342F PARENCHYMAL PATTERN: (D) - The breast(s) demonstrate(s) heterogeneously dense fibroglandular parenchy ma. BI-RADS CATEGORY: (2) - 2 RECOMMENDATION: (ANNUAL) - Recommend routine annual screening mammography. [id number] 1 year screening LATERALITY: (B)
== END 2023-12-10 11:03 | disposition home or self-care (01) ==
LOC: DI 11:02
PROVIDERS: ATTEND Internal Medicine
DX: Z12.31 Encounter for screening mammogram for malignant neoplasm of breast (principal); R92.333 Mammographic heterogeneous density, bilateral breasts; Z85.3 Personal history of malignant neoplasm of breast

== ENCOUNTER 2024-02-11 14:12 | Outpatient (CLI) | payer MEDICARE, OTHER ==
--- NOTE | 2024-02-11 17:00 | XRAY Report ---
PROCEDURE: Pelvis 1-2V INDICATIONS: COCCYX PAIN TECHNIQUE: Single frontal view the pelvis. COMPARISON: CT abdomen/pelvis 08/05/2019. FINDINGS: Bones: No acute fractures or dislocations. No suspicious bony lesions. Mild degenerative spurring in the lateral acetabula bilaterally. Mild degenerative changes at the pubic symphysis. Sacral bone detail is partially obscured by overlying soft tissues. Soft tissues: Visualized bowel gas pattern is normal. No suspicious soft tissue calcifications. IMPRESSION: 1.No acute osseous abnormality. If symptoms persist or there is continued clinical concern, further e valuation with MRI or CT may be helpful. 2.Mild bilateral hip osteoarthrosis. Reviewed by: Richard Bedolla MD on 02/11/2024 4:59 PM PDT Approved by: Richard Bedolla MD on 02/11/2024 4:59 PM PDT Station ID: [id number]
--- NOTE | 2024-02-11 17:01 | XRAY Report ---
PROCEDURE: Sacrum/Coccyx INDICATIONS: COCCYX PAIN TECHNIQUE: 3 views of the sacrum and coccyx acquired. COMPARISON: CT abdomen/pelvis 08/05/2019. FINDINGS: Bones: No acute fractures or dislocations. No suspicious bony lesions. Mild degenerative changes a t the pubic symphysis. Degenerative changes are seen in the included spine with grade 1 anterolisthes is noted at L4-5. Soft tissues: Visualized bowel gas pattern is normal. No suspicious soft tissue densities. IMPRESSION: No acute osseous abnormality. If symptoms persist or there is continued clinical concern, further jose luation with MRI or CT may be helpful. Reviewed by: Richard Bedolla MD on 02/11/2024 5:00 PM PDT Approved by: Richard Bedolla MD on 02/11/2024 5:00 PM PDT Station ID: [id number]
== END 2024-02-11 14:13 | disposition home or self-care (01) ==
LOC: DI 14:12
PROVIDERS: ATTEND Physician Assistant
DX: M16.0 Bilateral primary osteoarthritis of hip (principal); M47.816 Spondylosis without myelopathy or radiculopathy, lumbar region; M43.16 Spondylolisthesis, lumbar region

== ENCOUNTER 2024-03-10 12:19 | Outpatient (CLI) | payer MEDICARE, OTHER ==
[2024-03-10 12:31] LABS: BASOPHILS # (AUTO) 0.1 10^3/uL (0.0-0.1); BASOPHILS % (AUTO) 1.1 %; EOSINOPHILS # (AUTO) 0.1 10^3/uL (0.0-0.7); EOSINOPHILS % (AUTO) 2.4 %; HGB - HEMOGLOBIN 11.1 g/dL (12.0-16.0); LYMPHOCYTES # (AUTO) 1.8 10^3/uL (1.5-3.5); LYMPHOCYTES % (AUTO) 33.8 %; MEAN CORPUSCULAR HEMOGLOBIN 29.8 pg (27.0-31.0); MEAN CORPUSCULAR HGB CONC 31.7 g/dL (32.0-36.0); MEAN CORPUSCULAR VOLUME 93.8 fL (81.0-99.0); MEAN PLATELET VOLUME 8.9 fL (7.9-10.8); MONOCYTES # (AUTO) 0.4 10^3/uL (0.0-1.0); MONOCYTES % (AUTO) 7.2 %; NEUTROPHILS % (AUTO) 55.3 %; PLT - PLATELET COUNT 260 10^3/uL (130-450); RED BLOOD COUNT 3.73 10^6/uL (4.20-5.40); RED CELL DISTRIBUTION WIDTH 15.7 % (12.0-15.0); WHITE BLOOD COUNT 5.4 x10^3/uL (4.8-10.8)
[2024-03-10 13:05] LABS: ALBUMIN 4.3 g/dL (3.2-5.5); ALBUMIN/GLOBULIN RATIO 1.4 (1.0-2.2); BILIRUBIN,TOTAL 0.7 mg/dL (0.2-1.0); CALCIUM 9.6 mg/dL (8.5-10.3); CREATININE 0.9 mg/dL (0.6-1.3); TOTAL PROTEIN 7.4 g/dL (6.4-8.9)
[2024-03-10 13:17] LABS: THYROID STIMULATING HORMONE 0.79 uIU/mL (0.34-5.60)
[2024-03-10 20:58] LABS: ESTIMATED AVERAGE GLUCOSE 103 mg/dL (70-100); HEMOGLOBIN A1c% 5.2 % (4.27-6.07)
== END 2024-03-10 12:20 | disposition home or self-care (01) ==
LOC: LAB 12:19
DX: E03.9 Hypothyroidism, unspecified (principal); I10 Essential (primary) hypertension; R73.03 Prediabetes
CPT/HCPCS: 36415; 80053; 82607; 83036; 84439; 84443; 85025